=== PATIENT | female | born 1935 | race Two or more races ===

== ENCOUNTER 2019-12-12 14:00 | Outpatient (CLI) | payer MEDICARE, OTHER | END 2019-12-12 23:59 | disposition home health service (06) | LOC: WOU 14:00 | PROVIDERS: ATTEND Surgery | DX: L89.153 Pressure ulcer of sacral region, stage 3 (principal); L89.323 Pressure ulcer of left buttock, stage 3; E11.9 Type 2 diabetes mellitus without complications; I11.0 Hypertensive heart disease with heart failure; I50.9 Heart failure, unspecified; Z87.891 Personal history of nicotine dependence; Z79.82 Long term (current) use of aspirin | CPT/HCPCS: 11042 ==

== ENCOUNTER 2020-01-16 14:30 | Outpatient (CLI) | payer MEDICARE, OTHER | END 2020-01-16 23:59 | disposition home health service (06) | LOC: WOU 14:30 | PROVIDERS: ATTEND Surgery | DX: L89.153 Pressure ulcer of sacral region, stage 3 (principal); E11.9 Type 2 diabetes mellitus without complications; I11.0 Hypertensive heart disease with heart failure; I50.9 Heart failure, unspecified; Z87.891 Personal history of nicotine dependence; Z79.82 Long term (current) use of aspirin | CPT/HCPCS: 11042 ==

== ENCOUNTER 2020-03-19 15:12 | Outpatient (CLI) | payer MEDICARE, OTHER ==
[2020-03-19] MEDS ORDERED: COLLAGENASE 5 GM TUBE UD TP ONE ×2 (15:40→15:47)
[2020-03-19] MEDS ORDERED: Z GUARD REMEDY 2 OZ OINT TP ONE (15:46)
== END 2020-03-19 23:59 | disposition home health service (06) ==
LOC: WOU 15:12
PROVIDERS: ATTEND Surgery
DX: L89.323 Pressure ulcer of left buttock, stage 3 (principal); L89.151 Pressure ulcer of sacral region, stage 1; E11.9 Type 2 diabetes mellitus without complications; I11.0 Hypertensive heart disease with heart failure; I50.9 Heart failure, unspecified; Z87.891 Personal history of nicotine dependence
CPT/HCPCS: 11042

== ENCOUNTER 2020-05-21 14:00 | Outpatient (CLI) | payer MEDICARE, OTHER ==
[2020-05-21] MEDS ORDERED: COLLAGENASE 5 GM TUBE UD TP ONE (14:35)
== END 2020-05-21 23:59 | disposition home health service (06) ==
LOC: WOU 14:00
PROVIDERS: ATTEND Surgery
DX: L89.324 Pressure ulcer of left buttock, stage 4 (principal); E11.9 Type 2 diabetes mellitus without complications; I11.0 Hypertensive heart disease with heart failure; I50.9 Heart failure, unspecified; Z87.891 Personal history of nicotine dependence; Z79.82 Long term (current) use of aspirin
CPT/HCPCS: 11043

== ENCOUNTER 2020-07-30 14:00 | Outpatient (CLI) | payer MEDICARE, OTHER ==
[2020-07-30] MEDS ORDERED: LIDOCAINE 2% JEL 5 ML TUBE ONE (14:16)
[2020-07-30] MEDS ORDERED: COLLAGENASE 5 GM TUBE UD TP ONE (15:06)
== END 2020-07-30 23:59 | disposition home health service (06) ==
LOC: WOU 14:00
PROVIDERS: ATTEND Surgery
DX: L89.154 Pressure ulcer of sacral region, stage 4 (principal); I11.0 Hypertensive heart disease with heart failure; I50.9 Heart failure, unspecified; E11.9 Type 2 diabetes mellitus without complications; Z79.82 Long term (current) use of aspirin
CPT/HCPCS: 11042

== ENCOUNTER 2020-10-08 14:10 | Outpatient (CLI) | payer MEDICARE, OTHER ==
[2020-10-08] MEDS ORDERED: LIDOCAINE SOLN 4% 50 ML BOTTLE ONE (14:23)
[2020-10-08] MEDS ORDERED: COLLAGENASE 5 GM TUBE UD TP ONE (14:53)
== END 2020-10-08 23:59 | disposition home health service (06) ==
LOC: WOU 14:10
PROVIDERS: ATTEND Surgery
DX: L89.324 Pressure ulcer of left buttock, stage 4 (principal); L89.616 Pressure-induced deep tissue damage of right heel; I11.0 Hypertensive heart disease with heart failure; I50.9 Heart failure, unspecified; E11.9 Type 2 diabetes mellitus without complications; Z79.82 Long term (current) use of aspirin
CPT/HCPCS: G0463

== ENCOUNTER 2020-12-10 14:30 | Outpatient (CLI) | payer MEDICARE, OTHER ==
[2020-12-10] MEDS ORDERED: COLLAGENASE 5 GM TUBE UD TP ONE (15:34)
== END 2020-12-10 23:59 | disposition home health service (06) ==
LOC: WOU 14:30
PROVIDERS: ATTEND Surgery
DX: L89.324 Pressure ulcer of left buttock, stage 4 (principal); L89.616 Pressure-induced deep tissue damage of right heel; E11.9 Type 2 diabetes mellitus without complications; I11.0 Hypertensive heart disease with heart failure; I50.9 Heart failure, unspecified; Z79.82 Long term (current) use of aspirin
CPT/HCPCS: 11043

== ENCOUNTER 2020-12-24 14:45 | Outpatient (CLI) | payer MEDICARE, OTHER ==
[2020-12-24] MEDS ORDERED: COLLAGENASE 5 GM TUBE UD TP ONE (15:35)
== END 2020-12-24 23:59 | disposition home health service (06) ==
LOC: WOU 14:45
PROVIDERS: ATTEND Surgery
DX: L89.324 Pressure ulcer of left buttock, stage 4 (principal); I11.0 Hypertensive heart disease with heart failure; I50.9 Heart failure, unspecified; E11.9 Type 2 diabetes mellitus without complications; Z79.82 Long term (current) use of aspirin
CPT/HCPCS: 11042

== ENCOUNTER 2021-03-18 14:15 | Outpatient (CLI) | payer MEDICARE, OTHER ==
[~2021-03-18 14:15] MED LIST: LIDOCAINE SOLN 4% 50 ML BOTTLE ONE
[2021-03-18] MEDS ORDERED: COLLAGENASE 5 GM TUBE UD TP ONE (14:45)
== END 2021-03-18 23:59 | disposition home health service (06) ==
LOC: WOU 14:15
PROVIDERS: ATTEND Surgery
DX: L89.324 Pressure ulcer of left buttock, stage 4 (principal); L89.616 Pressure-induced deep tissue damage of right heel; E11.9 Type 2 diabetes mellitus without complications; I11.0 Hypertensive heart disease with heart failure; I50.9 Heart failure, unspecified; Z79.82 Long term (current) use of aspirin
CPT/HCPCS: 11042

== ENCOUNTER 2021-04-15 15:00 | Outpatient (CLI) | payer MEDICARE, OTHER ==
[2021-04-15] MEDS ORDERED: COLLAGENASE 5 GM TUBE UD TP ONE (15:12)
== END 2021-04-15 23:59 | disposition home health service (06) ==
LOC: WOU 15:00
PROVIDERS: ATTEND Surgery
DX: L89.324 Pressure ulcer of left buttock, stage 4 (principal); L89.616 Pressure-induced deep tissue damage of right heel; E11.9 Type 2 diabetes mellitus without complications; I11.0 Hypertensive heart disease with heart failure; I50.9 Heart failure, unspecified; Z79.899 Other long term (current) drug therapy
CPT/HCPCS: 11043

== ENCOUNTER 2021-05-13 14:45 | Outpatient (CLI) | payer MEDICARE, OTHER ==
[2021-05-13] MEDS ORDERED: LIDOCAINE SOLN 4% 50 ML BOTTLE ONE (14:51)
== END 2021-05-13 23:59 | disposition home health service (06) ==
LOC: WOU 14:45
PROVIDERS: ATTEND Surgery
DX: L89.324 Pressure ulcer of left buttock, stage 4 (principal); L89.616 Pressure-induced deep tissue damage of right heel; I11.0 Hypertensive heart disease with heart failure; I50.9 Heart failure, unspecified; E11.9 Type 2 diabetes mellitus without complications; Z79.82 Long term (current) use of aspirin
CPT/HCPCS: 11043; A6197

== ENCOUNTER 2021-05-27 14:30 | Outpatient (CLI) | payer MEDICARE, OTHER | END 2021-05-27 23:59 | disposition home health service (06) | LOC: WOU 14:30 | PROVIDERS: ATTEND Surgery | DX: L89.324 Pressure ulcer of left buttock, stage 4 (principal); L89.616 Pressure-induced deep tissue damage of right heel; I11.0 Hypertensive heart disease with heart failure; I50.9 Heart failure, unspecified; E11.9 Type 2 diabetes mellitus without complications; Z79.82 Long term (current) use of aspirin | CPT/HCPCS: 11043; A6197 ==

== ENCOUNTER 2021-11-18 10:00 | Outpatient (CLI) | payer MEDICARE, OTHER ==
[2021-11-18] MEDS ORDERED: LIDOCAINE SOLN 4% 50 ML BOTTLE ONE (10:14)
== END 2021-11-18 23:59 | disposition home health service (06) ==
LOC: WOU 10:00
PROVIDERS: ATTEND Surgery
DX: L89.324 Pressure ulcer of left buttock, stage 4 (principal); L89.153 Pressure ulcer of sacral region, stage 3; E11.9 Type 2 diabetes mellitus without complications; I10 Essential (primary) hypertension; I50.9 Heart failure, unspecified; Z79.82 Long term (current) use of aspirin
CPT/HCPCS: 11042; 11043; A6197

== ENCOUNTER 2022-01-21 14:00 | Outpatient (CLI) | payer MEDICARE, OTHER ==
[~2022-01-21 14:00] MED LIST changes: +LIDOCAINE 2% JEL 5 ML TUBE ONE; -LIDOCAINE SOLN 4% 50 ML BOTTLE ONE
== END 2022-01-21 23:59 | disposition home health service (06) ==
LOC: WOU 14:00
PROVIDERS: ATTEND Surgery
DX: L89.324 Pressure ulcer of left buttock, stage 4 (principal); L89.153 Pressure ulcer of sacral region, stage 3; E11.9 Type 2 diabetes mellitus without complications; I11.0 Hypertensive heart disease with heart failure; I50.9 Heart failure, unspecified; Z79.82 Long term (current) use of aspirin
CPT/HCPCS: 11043; A6197